=== PATIENT | female | born 1980 | race Caucasian/White ===

== ENCOUNTER 2018-10-30 23:55 | Emergency (ER) | payer SELFPAY ==
[~2018-10-30] VITALS: Ht 170.2 cm; Wt 81.2 kg
[2018-10-31 00:42] LABS: BASOPHILS # (AUTO) 0.1 K/uL (0.0-0.2); BASOPHILS % (AUTO) 0.7 % (0.0-2.0); EOSINOPHILS # (AUTO) 0.3 K/uL (0.0-0.4); EOSINOPHILS % (AUTO) 3.3 % (0.0-4.0); HEMATOCRIT 37.6 % (36-48); HEMOGLOBIN 12.8 g/dL (12.0-16.0); LYMPHOCYTES # (AUTO) 4.4 K/uL (1.0-5.5); MEAN CORPUSCULAR HEMOGLOBIN 32 pg (27-31); MEAN CORPUSCULAR HGB CONC 34 % (32-36); MEAN CORPUSCULAR VOLUME 93 fL (79.0-98.0); MONOCYTES # (AUTO) 0.5 K/uL (0.0-1.0); MONOCYTES % (AUTO) 5.3 % (1.7-9.3); NEUTROPHILS # (AUTO) 4.9 K/uL (1.8-7.7); NEUTROPHILS % (AUTO) 47.7 % (40.0-70.0); PLATELET COUNT (AUTO) 187 K/uL (130-430); RED BLOOD CELL COUNT(AUTO) 4.05 MIL/uL (4.2-6.2); RED CELL DISTRIBUTION WIDTH 13.7 % (9.0-15.0); WHITE BLOOD COUNT (AUTO) 10.3 K/uL (4.8-10.8)
[2018-10-31 00:46] VITALS: BP_SYST 106
--- NOTE | 2018-10-31 00:46 | NUR ---
Patient to ER bed 08 to gown for evaluation. Side rails up. Report given to VANDANA Heck
--- NOTE | 2018-10-31 00:47 | NUR ---
WESLEY Olivia at bedside examining patient.
--- NOTE | 2018-10-31 00:50 | NUR ---
Patient brought in complaining of possible seizure. Patient reports that she was drinking juice when it went down the "wrong pipe." and reports ringing in her ears. Patient's boyfriend reports he witnessed seziure like activity lasting 10 seconds. Denies any KO, nausea, vomiting or diarrhea. No other complains/injuries per patient or as noted. Will continue to monitor.
[2018-10-31 00:54] LABS: ALANINE AMINOTRANSFERASE 23 U/L (12-78); ALBUMIN 3.6 g/dL (3.4-4.8); ASPARTATE AMINOTRANSFERASE 12 U/L (10-37); CHLORIDE 103 mmol/L (98-107); CREATININE 1.32 mg/dL (0.55-1.30); GLUCOSE 93 mg/dL (70-99); POTASSIUM 3.7 mmol/L (3.5-5.1); SODIUM SERUM 138 mmol/L (136-145); TOTAL BILIRUBIN 0.1 mg/dL (0.0-1.0)
[2018-10-31 00:57] LABS: GFR AFRICAN AMERICAN 57 mL/min (>90)
[2018-10-31 01:10] LABS: ANION GAP 10 (5-15); UREA NITROGEN, BLOOD 11 mg/dL (8-21)
[2018-10-31 01:21] LABS: BILIRUBIN,URINE NEGATIVE (NEGATIVE); BLOOD, URINE NEGATIVE (NEGATIVE); CLARITY/URINE CLEAR (CLEAR); COLOR,URINE YELLOW (YELLOW); GLUCOSE,URINE NEGATIVE (NEGATIVE); KETONES,URINE NEGATIVE (NEGATIVE); LEUKOCYTE ESTERASE ,URINE TRACE (NEGATIVE); NITRITE, URINE NEGATIVE (NEGATIVE); PROTEIN URINE NEGATIVE (NEGATIVE); UROBILINOGEN,URINE 0.2 (0.2-1.0)
[2018-10-31 01:35] LABS: CANNABINOID, URINE POSITIVE (NEG <=50)
[2018-10-31 01:36] LABS: BARBITURATE, URINE NEGATIVE (NEG <=200); BENZODIAZEPINE, URINE NEGATIVE (NEG <=150); COCAINE, URINE NEGATIVE (NEG <=150); METHAMPHETAMINES SCREEN,URINE NEGATIVE (NEG <=500); OPIATE, URINE NEGATIVE (NEG <=100); PHENCYCLIDINE SCREEN,URINE NEGATIVE (NEG <=25); UR TRICYCLIC ANTIDEPRESSANTS NEGATIVE (NEG <=300); URINE AMPHETAMINE NEGATIVE (NEG <=500); URINE METHADONE NEGATIVE (NEG <=200); URINE OXYCODONE SCREEN NEGATIVE (NEG <=100); URINE PROPOXYPHENE SCREEN NEGATIVE (NEG <=300)
[2018-10-31 01:50] VITALS: BP_SYST 110
--- NOTE | 2018-10-31 01:50 | NUR ---
Patient given written and verbal discharge instructions and verbalizes understanding. ER MD Olivia discussed with patient the results and treatment provided. Patient in stable condition. ID arm band removed. No Rx given. Patient educated on pain management and to follow up with PMD in 2-3 days. Pain Scale 0/10 Opportunity for questions provided and answered.
[2018-10-31 01:55] LABS: BACTERIA,URINE FEW /HPF (None Seen); RBC,URINE 0-3 /HPF (0-3)
== END 2018-10-31 01:50 | disposition home or self-care (01) ==
LOC: SED 23:55
DX: N18.9 Chronic kidney disease, unspecified (principal); R55 Syncope and collapse; F31.9 Bipolar disorder, unspecified; Z88.2 Allergy status to sulfonamides
CPT/HCPCS: 36415; 70450-TC; 80053; 80307; 81000-TC; 84484; 85025; 87086; 93005; 99284